=== PATIENT | female | born 2005 | race Caucasian/White ===

== ENCOUNTER 2025-09-06 12:21 | Emergency (ER) | payer OTHER, SELFPAY ==
[2025-09-06 12:27] VITALS: BP 124/72
[2025-09-06 12:41] VITALS: BP 111/77
[2025-09-06 12:56] LABS: Hematocrit 38.3 % (37.0-47.0); Hemoglobin 12.9 g/dL (12.0-16.0); Mean Corp Hgb Conc. 33.7 g/dL (33.0-37.0); Mean Corpuscular Volume 83.3 fL (81.0-99.0); Nucleated Red Blood Cells % 0 %; Platelet Count 183 10^3/uL (130-400); Red Cell Dist. Width 12.3 % (11.5-14.5)
[2025-09-06 13:00] VITALS: BP 110/88
[2025-09-06] MEDS: TORADOL 15 MG IV (13:04)
--- NOTE | 2025-09-06 13:04 | ED.GENMED ---
History of Present Illness
General
Chief Complaint: Abdominal Pain
Time Seen by Provider: 09/06/25 12:37
History of Present Illness
History of Present Illness:
20-year-old female without significant past medical history presenting for 2-1/2 weeks of abdominal cramping. Patient notes that the cramping has been constant. Initially was evaluated at urgent care was started on Pepcid, thought to have
gastritis. She has made interval follow-up appointment with GI 2 weeks from now. Symptoms have been constant. Notes that she wakes up with the pain, progresses throughout the day. No history of abdominal surgeries. No complaints. No
vomiting or changes in stool. No fever. No additional acute medical complaints
Phy Exam
Physical Exam
Physical Exam:
General: Well-appearing, no clinical signs of dehydration, nontoxic and in no acute distress
HEENT: protecting airway
Neck: appears supple
CV: Normal heart rate, regular rhythm
Resp: No accessory muscle use, no increased work of breathing, lungs clear to auscultation bilaterally
Abd: Soft and non-distended, generalized nonfocal tenderness
Extremities: No deformities, no swelling
Neuro: alert, no focal neurologic deficit
: deferred
Rectal: deferred
Psych: Normal affect
Skin: Intact
Course
Orders/Labs/Results
Orders:
Orders
09/06/25 12:30
Electrocardiogram (*1) Urgent
Reason for Study: Chest Pain
EKG- Treatment ONCE
09/06/25 12:33
Urinalysis Reflex To Culture Urgent
Date Specimen was Collected: 09/06/25
Time Specimen was Collected: 12:33
Test Result ONCE
09/06/25 12:40
Complete Blood Count/With Diff Urgent
Comprehensive Metabolic Panel Urgent
HCG, Serum Qualitative Screen Urgent
Lipase Urgent
09/06/25 12:41
Troponin I Urgent
09/06/25 13:00
CT Abd/pelvis W Iv Cont Urgent
Comment:
Reason For Exam: abd cramping 2.5 weeks
Famotidine [Pepcid] 20 mg IV NOW STA
Ketorolac [Toradol] 15 mg IV NOW STA
Abnormal Lab Results
09/06/25
12:40
MPV 11.0 H fL
(7.4-10.4)
09/06/25 12:40
09/06/25 12:40
Vital Signs
Initial and Last Documented VS:
Initial Vital Signs
Temp Pulse Resp BP Pulse Ox
98.4 F 81 20 124/72 100
09/06/25 12:27 09/06/25 12:27 09/06/25 12:27 09/06/25 12:27 09/06/25 12:27
Last Documented Vital Signs
Temp Pulse Resp BP Pulse Ox
98.4 F 69 16 111/60 100
09/06/25 12:27 09/06/25 14:15 09/06/25 14:15 09/06/25 14:00 09/06/25 14:15
MDM/Problems Addressed
MDM/Problems Addressed:
20-year-old female presenting for 2-1/2 weeks of abdominal cramping. Vital signs on arrival are normal.
On exam, patient resting comfortably, nontoxic. Ultimately suspect GI component to patient's symptoms. Likely GERD versus gastritis versus possible colitis. However no significant GI symptoms with lower suspicion for colitis. No focal right
upper quadrant tenderness with lower suspicion for cholelithiasis versus cholecystitis. Plan for laboratory analysis. Given duration of symptoms and generalized discomfort on exam, will obtain CT abdominal imaging.
14:30-CT without acute abnormality. Labs unremarkable. Continue to suspect upper GI etiology of patient's symptoms. Diet modification discussed. Also advised Pepcid. Patient is following up with GI in 2 weeks. Return precautions discussed and
patient verbalized understanding
*Pulse Oximetry
SaO2: 100
Oxygen Mode of Delivery: Room air
Patient hypoxic: no
*EKG
Interpreted by ED Provider?: Yes
EKG Intrepretation Date: 09/06/25
EKG Intrepretation Time: 13:06
Interpretation: normal
Heart Rate: 82
Rate: normal
Rhythm: sinus
[place]: normal axis
Interval: normal interval
QRS Pattern: normal QRS
*Critical Care Note
Total Time (30-74mins, 75-104mins- exclusive of procedures): Not Applicable
ED Attending Note
-
Portions of this chart may have been created with voice recognition software.� Occasional wrong word or��sound alike� substitutions may have occurred due to the inherent limitations of voice recognition software.
Discharge Plan
Departure
Prescriptions:
No Action
ondansetron 4 mg tablet,disintegrating
4 mg PO Q6H PRN (Reason: nausea and vomiting) Qty: 14 0RF
dicyclomine 10 mg capsule
10 mg PO QID PRN (Reason: abdominal cramps) Qty: 14 0RF
Referrals:
Di Grijalva PA-C [Family Provider, Family Practice]
Interventions
Interventions:
*General Assessment Last Done: 09/06/25 12:27
*Neglect/Abuse Screening Last Done: 09/06/25 12:27
*ED COVID-19 Vaccine History Last Done: 09/06/25 12:44
*ED Influenza Vaccine History Last Done: 09/06/25 12:44
[facility] Fall Risk Assessment Tool Last Done: 09/06/25 12:43
*Risk Screen - Suicide (C-SSRS) Last Done: 09/06/25 12:44
YN-Dpqnva-Aazumsnqhg Assessment Last Done: 09/06/25 12:45
Discharge Date and Time
Print Language: MALTESE
[2025-09-06] MEDS: PEPCID 20 MG IV (13:05)
[2025-09-06 13:10] LABS: HCG, Serum Qualitative Screen Negative
[2025-09-06 13:20] LABS: ALT (SGPT) 13 U/L (0-35); AST (SGOT) 23 U/L (14-36); Albumin 4.9 g/dl (3.5-5.0); Alkaline Phosphatase 67 U/L (38-126); Blood Urea Nitrogen 13 mg/dl (7-17); Calcium 8.7 mg/dl (8.4-10.2); Carbon Dioxide 22 mmol/L (22-30); Chloride 106 mmol/L (98-107); Glucose 83 mg/dl (70-99); Lipase 132 U/L (23-300); Potassium 4.2 mmol/L (3.5-5.1); Sodium 137 mmol/L (135-145); Total Protein 7.9 g/dl (6.3-8.2); eGFR > 60.00
[2025-09-06 13:30] LABS: Troponin I < 0.012 ng/ml
[2025-09-06 14:00] VITALS: BP 111/60
[2025-09-06 14:43] LABS: Urine Character Clear (Clear)
[2025-09-06 14:52] LABS: Urine Squamous Cell >30 /LPF (Few)
== END 2025-09-06 14:51 | disposition home or self-care (01) ==
LOC: EMR 12:21
PROVIDERS: Emergency Medicine; EMERGENCY PHYSICIAN Student in an Organized Health Care Education/Training Program; FAMILY PHYSICIAN Physician Assistant Medical
DX: R10.9 Unspecified abdominal pain (principal)
CPT/HCPCS: 96374; 96375; 99284; 74177; 80053; 81003; 81015; 83690; 84484; 84703; 85025; 87086; 93005; Q9967